=== PATIENT | female | born 2000 | race Caucasian/White ===

== ENCOUNTER 2024-10-03 11:16 | Outpatient (AMB) | payer OTHER, SELFPAY ==
--- NOTE | 2024-10-03 11:31 | MHC.PC.OV ---
Vital Signs 10/03/24 11:34 Height 5 ft 2.28 in Weight 172 lb BMI 31.2 BP 96/72 Blood Pressure Location Rt brachial Position Sitting Respiration 12 Pulse 84 Pulse Source Pulse Oximeter Temp 98.9 F Temp Source Oral Pulse Oximetry (%) 98 Oxygen Delivery Method Room Air Intake Visit Reasons: depression med refill Intake Note: New patient visit Allergies No Known Allergies Allergy (Verified 10/03/24 11:32) Medication List - Last Reconciled 10/03/24 by Mary Parnell PA-C Tobacco use date assessed: 10/03/24 Dental Screening Dental Screen Date: 10/03/24 Did you have a dental visit in the last 12 months?: Yes Did you have a dental problem in the last 6 months where you did not have access to dental care?: No Was dental information given to patient?: Patient has dentist HPI depression med refill HPI Details Patient is a 23-year-old female who presents today to [facility]. She is transferring from [facility]. She has a significant past medical history of anxiety and depression. Psych: On Lexapro 10 mg. Has been on this since 2020. Has not tried previous meds. She states that it is somewhat helpful but not fully. She is working with a therapist and she finds this helpful. She lost her mom in September 17 colorectal cancer. She states in January she presented to the hospital and was diagnosed with this and had spent months in the ICU. She says that this has been very challenging for her and over the last few months she made some poor choices with over spending through her savings account. She states that her mother used to manage this and she thinks that she was just grieving. She has been careful with this for awhile. She is taking steps to help control the grief. She has a supportive family and friends. She says that she was also drinking more alcohol than she probably should have been at that point and since then has not been drinking. 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 She states that she is very active during the day that when she gets home she just lacks motivation and she thinks that is how her depression presents. She has a hard time feeling excited about doing things. She also has since her mother passed developed a lot of health anxiety. She says that she has generalized anxiety but also the health anxiety. No SI/HI. Denies sleep issues HEENT: She states that for the last couple years she has noticed this swelling on the left side of her neck. She says it feels like it is her lymph nodes. On exam I do not appreciate any difference between the sides but she states that there is a fullness to the left side of her neck/jaw area. Up-to-date with dental exams. Denies any recent infections. Denies any difficulty swallowing. No weight loss. She does vape GI: She states for the last 2-3 years she started with frequent BMs. She states that it has gradually worsened. It is throughout the day and about an hour after eating. No blood in the stool. No mucous in the stool. No weight loss with this. She gets mild abdominal discomfort that resolves with bowel movements. She also we will feel bloated and that will not improve with bowel movements. She states on the right side of her lower abdomen/pelvic area she feels a fullness. She is up-to-date with gynecology. She says that if she lays on her abdomen it will make her have to use the bathroom. This has been going on for the last year. She states that the almost almost every bowel movement is loose like diarrhea. A couple times a week she will have a normal consistent stool. She is very worried about colon cancer. She states when her mother was at the hospital in January the oncologist explained that colon cancer is happening too young people and she states since then she has been worried that she has colon cancer. Denies any abnormal menses, abnormal vaginal discharge or bleeding. She states that she had recent STD screening which was negative and does not wish to have this again. No dysuria, malodorous urine or flank pain. Leather Skinner: [facility] follows and UTD, normal menses monthly 4-5 days. Family history: paternal grandfather had DM, father HLD, mother had colorectal ca dx at 52, PFSH Surgical History (Updated 10/03/24 @ 11:38 by Chely Gonzalez CMA) H/O wisdom tooth extraction Family History (Updated 10/03/24 @ 11:41 by Chely Gonzalez CMA) Mother Colon cancer Father High cholesterol Maternal Grandmother Liver cancer Paternal Grandfather Diabetes Other FH: mental illness Social History Housing: House Patient Tobacco Use Status: Never used Tobacco e-Cigarette/Vaping Use: Currently Using service: No Current occupational status: employed Current occupation: Daycare, [employer] Current occupational exposures/hazards: No Cognitive needs: No Hearing needs: No Vision needs: No Questionnaire PHQ-9 Over the last 2 weeks, how often have you been bothered by any of the following problems? 1. Little interest or pleasure in doing things: several days 2. Feeling down, depressed, or hopeless: several days 3. Trouble falling or staying asleep, or sleeping too much: several days 4. Feeling tired or having little energy: several days 5. Poor appetite or overeating: not at all 6. Feeling bad about yourself - or that you are a failure or have let yourself or your family down: not at all 7. Trouble concentrating on things, such as reading the newspaper or watching television: several days 8. Moving or speaking so slowly that other people could have noticed. Or the opposite - being so fidgety or restless that you have been moving around a lot more than usual: not at all 9. Thoughts that you would be better off or of hurting yourself in some way: not at all Total score: 5 Depression Screening Interpretation: Positive Depression Screening Follow-up: Existing condition, In treatment, Change in Medication, Community Mental Health Worker F/U and Follow-up Visit Requested Depression Screening Done: Yes 57374 - PHQ-9 Billing: Yes Source: Developed by Drs. Robbie Puentes, Ann Kwok, Dane Vo and colleagues, with an educational chidi from [employer]. Thrive Questionnaire Date Thrive assessed: 10/03/24 I am a: Patient What is your living situation today?: I have a steady place to live Within the past 12 months, did the food you bought not last and you didn't have the money to get more?: Never true Within the past 12 months, did you worry whether your food would run out before you got money to buy more?: Never true Do you have trouble paying for medicines?: No Do you have trouble getting transportation to medical appointments?: No Do you have trouble paying your heating and electricity bill?: No Do you have trouble taking care of your child, family member or friend?: No Do you have trouble with day-to-day activities such as bathing, preparing meals, shopping, managing finances, etc.?: No Are you currently unemployed and looking for a job?: No Are you interested in more education?: No Please select the resources that you would like help with: None Currently or been in a relationship where the following occur: No concerns reported THRIVE Score: 0 AUDIT C Alcohol Use Questionnaire (AUDIT-C) 1. How often do you have a drink containing alcohol?: Monthly or less 2. How many drinks containing alcohol do you have on a typical day when you are drinking?: 3 or 4 3. How often do you have six or more drinks on one occasion?: Less than monthly Total Score: 3 Score Reviewed/Action Taken: Yes PRASHANTH-7 AMB Questionnaire PRASHANTH-7 Date PRASHANTH - 7 assessed: 10/03/24 Feeling nervous, anxious, or on edge: 1 = Several days Not being able to stop or control worryin = Not at all Worrying too much about different things: 1 = Several days Trouble relaxin = Several days Being so restless that it is hard to sit still: 0 = Not at all Becoming easily annoyed or irritable: 1 = Several days Feeling afraid as if something awful might happen: 1 = Several days Total PRASHANTH-7 score (0-4 normal; 5-9 mild; 10-14 moderate; 15-21 severe): 5 Source: Developed by Drs. Robbie Puentes, Ann Kwok, Dane Vo and colleagues, with an educational chidi from [employer]. PRASHANTH-7 Assessment Billing PRASHANTH-7 Assessment Tool: PRASHANTH-7 Assessment [id number] Physical exam (Primary Care) Vital Signs: Last Vital Signs Temp 98.9 F 10/03/24 11:34 Pulse 84 10/03/24 11:34 Resp 12 10/03/24 11:34 BP 96/72 10/03/24 11:34 Pulse Ox 98 10/03/24 11:34 Oxygen Delivery Method Room Air 10/03/24 11:34 BMI result Body Mass Index 31.2 Depression Screening Interpretation: Positive Depression Screening Follow-up: Existing condition, In treatment, Change in Medication, Community Mental Health Worker F/U and Follow-up Visit Requested Currently or been in a relationship where the following occur: No concerns reported Const Orientation/consciousness: patient oriented x3 HENMT Ears: hearing grossly normal bilaterally Neck Thyroid: Thyroid normal Lymphatic: no lymphadenopathy noted Resp Auscultation: clear to auscultation bilaterally Cardio Rate: regular rate Rhythm: regular rhythm Heart sounds: S1 normal heart sound present and S2 normal heart sound present GI Inspection: Yes normal to inspection Palpation (GI): Soft to palpation and Other GI palpation findings present (nontender, no cva tenderness) Auscultation: normoactive bowel sounds Rectal Exam - Female: deferred Skin General skin exam: no rashes or lesions noted Neuro General: patient oriented x3, gait normal and no focal motor deficits Coding Level of Care Code Complex EM visit Add On G2211 Diagnoses Frequent loose stools R19.7 Family hx of colorectal cancer Z80.0 Generalized anxiety disorder F41.1 Major depression, recurrent, chronic F33.9 Abdominal bloating R14.0 Left cervical lymphadenopathy R59.0 Additional Codes PHQ-9 - 20124 - PHQ-9 Billing: Yes ([id number]) PRASHANTH-7 Assessment Billing - PRASHANTH-7 Assessment Tool: PRASHANTH-7 Assessment [id number] ([id number]) Assessment & Plan Assessment & Plan (1) Frequent loose stools: Code(s): R19.7 - Diarrhea, unspecified Category: Medical Plan: Labs ordered. Imaging ordered. Advised to try an elimination diet. I have referred her to GI. (2) Family hx of colorectal cancer: Code(s): Z80.0 - Family history of malignant neoplasm of digestive organs Category: Medical Plan: As listed above. (3) Generalized anxiety disorder: Code(s): F41.1 - Generalized anxiety disorder Category: Medical Plan: Increase Lexapro to 20 mg Spent extensive time discussing the health anxiety and healthy lifestyle changes that she could make to help reduce her risks such as limiting sugar, processed foods, quit vaping, quit drinking, exercise and good quality sleep (4) Major depression, recurrent, chronic: Code(s): F33.9 - Major depressive disorder, recurrent, unspecified Category: Medical Plan: As above. We will follow up if anything worsens or changes sooner otherwise follow up in 4-6 weeks. Has follow up arranged with her therapist. (5) Abdominal bloating: Code(s): R14.0 - Abdominal distension (gaseous) Category: Medical Plan: Pelvic and abdominal ultrasound ordered (6) Left cervical lymphadenopathy: Code(s): R59.0 - Localized enlarged lymph nodes Category: Medical Plan: Unable to appreciate this today. Ultrasound ordered. Plan 70 minutes spent today in fphb-kg-beco time reviewing a list of her concerns, discussing her anxiety, grief and formulating a plan and making medication changes. Orders: Orders Transglutaminase Ab IgG Today F33.9 - Major depressive disorder, recurrent, unspecified, F41.1 - Generalized anxiety disorder, R19.7 - Diarrhea, unspecified, Z80.0 - Family history of malignant neoplasm of digestive organs Vitamin B12 and Folate Today F33.9 - Major depressive disorder, recurrent, unspecified, F41.1 - Generalized anxiety disorder, R19.7 - Diarrhea, unspecified, Z80.0 - Family history of malignant neoplasm of digestive organs Ferritin Today F33.9 - Major depressive disorder, recurrent, unspecified, F41.1 - Generalized anxiety disorder, R19.7 - Diarrhea, unspecified, Z80.0 - Family history of malignant neoplasm of digestive organs IRON PROFILE Today F33.9 - Major depressive disorder, recurrent, unspecified, F41.1 - Generalized anxiety disorder, R19.7 - Diarrhea, unspecified, Z80.0 - Family history of malignant neoplasm of digestive organs US soft tiss head and/or neck Today R59.0 - Localized enlarged lymph nodes Complete Blood Count Auto Diff Today F33.9 - Major depressive disorder, recurrent, unspecified, F41.1 - Generalized anxiety disorder, R19.7 - Diarrhea, unspecified, Z80.0 - Family history of malignant neoplasm of digestive organs Comprehensive Met. Panel Today F33.9 - Major depressive disorder, recurrent, unspecified, F41.1 - Generalized anxiety disorder, R19.7 - Diarrhea, unspecified, Z80.0 - Family history of malignant neoplasm of digestive organs Lipid Panel Today F33.9 - Major depressive disorder, recurrent, unspecified, F41.1 - Generalized anxiety disorder, R19.7 - Diarrhea, unspecified, Z80.0 - Family history of malignant neoplasm of digestive organs Hemoglobin A1c Today F33.9 - Major depressive disorder, recurrent, unspecified, F41.1 - Generalized anxiety disorder, R19.7 - Diarrhea, unspecified, R73.01 - Impaired fasting glucose, Z80.0 - Family history of malignant neoplasm of digestive organs TSH reflex Free T4 Today F33.9 - Major depressive disorder, recurrent, unspecified, F41.1 - Generalized anxiety disorder, R19.7 - Diarrhea, unspecified, Z80.0 - Family history of malignant neoplasm of digestive organs Erythrocyte Sedimentation Rate Today F33.9 - Major depressive disorder, recurrent, unspecified, F41.1 - Generalized anxiety disorder, R19.7 - Diarrhea, unspecified, Z80.0 - Family history of malignant neoplasm of digestive organs C Reactive Protein Today F33.9 - Major depressive disorder, recurrent, unspecified, F41.1 - Generalized anxiety disorder, R19.7 - Diarrhea, unspecified, Z80.0 - Family history of malignant neoplasm of digestive organs Endomysial IgA rflx Titer Today F33.9 - Major depressive disorder, recurrent, unspecified, F41.1 - Generalized anxiety disorder, R19.7 - Diarrhea, unspecified, Z80.0 - Family history of malignant neoplasm of digestive organs Immunoglobulin A Today F33.9 - Major depressive disorder, recurrent, unspecified, F41.1 - Generalized anxiety disorder, R19.7 - Diarrhea, unspecified, Z80.0 - Family history of malignant neoplasm of digestive organs Magnesium Today F33.9 - Major depressive disorder, recurrent, unspecified, F41.1 - Generalized anxiety disorder, R19.7 - Diarrhea, unspecified, Z80.0 - Family history of malignant neoplasm of digestive organs US abdomen complete Today R10.2 - Pelvic and perineal pain, R14.0 - Abdominal distension (gaseous) US pelvic and transvaginal Today R10.2 - Pelvic and perineal pain, R14.0 - Abdominal distension (gaseous) UA CC w/rflx Micro + Cult Today R14.0 - Abdominal distension (gaseous), R19.7 - Diarrhea, unspecified, Z13.220 - Encounter for screening for lipoid disorders Referrals Gastroenterology Referral R19.7 - Diarrhea, unspecified, Z80.0 - Family history of malignant neoplasm of digestive organs Medications: New escitalopram oxalate (Lexapro) 20 mg PO DAILY 90 tabs 3RF
[2024-10-03 11:34] VITALS: BP 96/72; PULSE 84; RESP 12; TEMP 37.2; O2SAT 98; BMI 31.2
--- OUTSIDE RECORDS SUMMARY | 2024-10-03 13:07 | XMS_ITS | Data Portability ---
Author Organization [facility] [address] Address [address] [place] [address] Assessment No assessment recorded. Plan of Treatment Reminders Order Date Submit Date Provider Last Modified By Organization Details Last Modified Time Details Appointments None record ed. Lab None record ed. Referral None record ed. Procedures None record ed. Surgeries None record ed. Imaging None record ed. Medication Orders None record ed. Patient TargetsNo targets recorded. Patient InstructionsNo instructions recorded. Reason for Referral None Reported. Medical Equipment None Reported. Medications Name Sig Start Date Stop Date Status Note LastModified by Organization Details LastModified Time amoxicillin 500 mg capsule TAKE 1 CAPSULE BY MOUTH THREE TIMES A DAY active Not Available Not Available Not Available cetirizine 10 mg tablet TAKE 1 TABLET BY MOUTH EVERY DAY active Not Available Not Available No t Available fluconazole 150 mg tablet TAKE 1 TABLET BY MOUTH ONCE FOR YEAST INFECTION active Not Available Not Available No t Available metronidazol e 0.75 % (37.5 mg/5 gram) vaginal gel INSERT 1 APPLICATORF UL VAGINALLY ONCE DAILY AT BEDTIME FOR 5 DAYS active Not Available Not Available N ot Available ibuprofen 600 mg tablet TAKE 1 TABLET BY MOUTH EVERY 4-6 HOURS NEEDED active Not Available Not Available No t Available methylpredni solone 4 mg tablets in a dose pack TAKE 6 TABLETS ON DAY 1 DIRECTED ON PACKAGE AND DECREASE BY 1 TAB EACH DAY FOR A TOTAL OF 6 DAYS active Not Available Not Available No t Available albuterol sulfate HFA 90 mcg/actuatio n aerosol inhaler INHALE 2 PUFFS EVERY 4 HOURS NEEDED FOR WHEEZING active Not Available Not Available No t Available amoxicillin 875 mg-potassium clavulanate 125 mg tablet TAKE 1 TABLET BY MOUTH TWICE A DAY active Not Available Not Available No t Available escitalopram 10 mg tablet TAKE 1 TABLET BY MOUTH EVERY DAY active Not Available Not Available No t Available chlorhexidin e gluconate 0.12 % mouthwash SWISH AND SPIT 15 ML BY MOUTH, MORNING AND NIGHT FOR 2 WEEKS active Not Available Not Available No t Available Vitals None Recorded Social History None recorded. Functional Status None recorded. Mental Status None recorded. Family History Nothing Reported. Medical History No medical history recorded. Gynecological HistoryNo gynecological history recorded. Obstetrics History GPAL:G 0 P 0 0 0 0 Past Encounters Encounter ID Performer Location Encounter Start Date Encounter Closed Date Diagnosis/Indication Diagnosis SNOMED-CT Code Diagnosis ICD10 Code Diagnosis Note [id number] [facility] [address] [facility] [address] [place] [address] 11/02/2020 11:20:42 11/02/2020 12:42:35 [id number] _[facility] [address] [address] 12/21/2020 08:11:44 12/21/2020 09:45:25 Health Concerns Section Related Observation LastModified by Organization Detai ls LastModified Time None Recorded Concern Status LastModified by Organization Details LastModified Time None Recorded Advance Directives Directive None Recorded Payers Insurance Date Sequence Insurance Name Policy Number Policy Clancy Covered Member ID Clancy Member ID Guarantor Name 04/21/2022 1 [facility] [id number] Natividad Quigley [id number] Natividad Quigley OBGyn Episode No OBEpisode recorded.
== END 2024-10-03 12:20 | disposition home or self-care (01) ==
LOC: HO.HMCFM 11:17
PROVIDERS: PCP Physician Assistant; Visit Provider Physician Assistant
DX: R19.7 Diarrhea, unspecified (principal); Z80.0 Family history of malignant neoplasm of digestive organs; F41.1 Generalized anxiety disorder; F33.9 Major depressive disorder, recurrent, unspecified; R14.0 Abdominal distension (gaseous); R59.0 Localized enlarged lymph nodes

== ENCOUNTER → 2024-10-03 11:16 | Outpatient (BNVA) | payer OTHER, SELFPAY | PROVIDERS: PCP Physician Assistant; Visit Provider Physician Assistant | DX: F41.1 Generalized anxiety disorder (principal); R19.7 Diarrhea, unspecified; F33.9 Major depressive disorder, recurrent, unspecified; R14.0 Abdominal distension (gaseous); R59.0 Localized enlarged lymph nodes; Z80.0 Family history of malignant neoplasm of digestive organs; Z79.899 Other long term (current) drug therapy | CPT/HCPCS: 96127 ==

== ENCOUNTER 2024-10-29 10:55 | Outpatient (REF) | payer OTHER, SELFPAY ==
--- OUTSIDE RECORDS SUMMARY | 2024-10-29 11:54 | XMS_ITS | Data Portability ---
Author Organization [facility], [address] Address [address] [place] [address] Assessment No assessment recorded. Plan of Treatment [...] SNOMED-CT Code Diagnosis ICD10 Code Diagnosis Note [id number] [facility] [place] [address] 11/02/2020 11:20:42 11/02/2020 12:42:35 [id number] _[facility] [address] [address] 12/21/2020 08:11:44 12/21/2020 09:45:25 Health Concerns Section Related Observation LastModified by Organization Detai ls LastModified Time None Recorded Concern Status LastModified by Organization Details LastModified Time None Recorded Advance Directives Directive None Recorded Payers Insurance Date Sequence Insurance Name Policy Number Policy Clancy Covered Member ID Clancy Member ID Guarantor Name 04/21/2022 1 [facility] [id number] Natividad Quigley [id number] Natividad Quigley OBGyn Episode No OBEpisode recorded.
--- OUTSIDE RECORDS SUMMARY | 2024-10-29 11:54 | XMS_ITS | Clinical Summary ---
Author Organization [facility] Address [address] [place] [phone] Phone Care Team Providers Care Final Inspector Movement Assembly Name Role Phone Unavailable Primary Care Provider Unavailabl e Allergies Active Allergy Reactions Criticality Noted Date Comments Environmental 12/12/2017 Cats dogs mold grass pollen tree pollen Medications QVAR REDIHALER 80 MCG/ACT aerosol 8 Active ALBUTEROL HFA 108 (90 Base) MCG/ACT inhalerIndication s:Mild intermittent asthma without complication INHALE 2 PUFFS BY MOUTH EVERY 4 HOURS NEEDED FOR WHEEZING AND COUGHING 1 Units 0 Active cetirizine (ZyrTEC Allergy) 10 MG tabletIndications :Seasonal allergies Take 1 tablet (10 mg total) by mouth nightly as needed for allergies. 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 Will check lipids as was recommended in Cardiology note from 2010 BMI (body mass index), pedia tric, 85% to less than 95% for age 0307/02/2019 Assessment & Plan (07/02/2019 11:08 AM EDT): Showed and discussed growth curves. Encouraged regular exercise. Will check fasting labs, gave list of BRL hours. Nevus 07/02/2019 Assessment & Plan (07/02/2019 11:11 AM EDT): Discussed changes to call for. Sun protection discussed. Dysmenorrhea 11/17/2018 Assessment & Plan (07/02/2019 11:06 AM EDT): Off OCP's now, declined other form of contraception at this point. Discussed safe sex if SA. To f/u with Tree G[facility]ler as needed. She has not discussed this with parents, encouraged her to do so if able. Assessment & Plan (11/17/2018 3:18 PM EDT): Gave rx for OCP, did not add to med record by request Refused influenza vaccine 06/08/2018 Assessment & Plan (07/02/2019 10:44 AM EDT): Recommended flu shot which was declined. Seasonal allergies 06/08/2018 Overview (06/08/2018): Spring and cetitizine and sees irrigator head with animal and dust allergies as well. Assessment & Plan (07/02/2019 10:41 AM EDT): Takes Cetirizine as needed. 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 Has it at home. Assessment & Plan (06/08/2018 3:40 PM EST): QVAR in the spring for pollen allergies and also dust and animal dander for allergies. Albuterol as needed. Immunizations Immunization Administration Dates Next Due DTaP 11/16/2005, 2,05/24/2001, 001,01/25/2001 H1N1 05/21/2009,02/03/2009 HPV Vaccine 9 Valent 11/27/2015,05/26/2015 Hep A, ped/adol 07/02/2019,06/19/2018 Hep B, ped/adol 08/16/2001,2000,2000 Hib (PRP-T) 03/12/2002, 2,03/27/2001, 001 IPV 11/16/2005, 2,03/27/2001, 001 MMR 11/16/2005,11/21/2001 Meningococcal Conj (Menactra) MCV4P 06/02/2017,1 04/24/2011 Pneumococcal Conjugate 05/24/2001,03/27/2001,01/2001 Tdap 02/23/2012 Varicella 11/25/2006,11/21/2001 Family History Medical History Relation Name Comments Hyperlipidemia Father Colon cancer Maternal Grandfather Heart disease (Premature) Maternal Grandfather No Known Problems Maternal Grandmother No Known Problems Mother Diabetes Paternal Grandfather No Known Problems Paternal Grandmother No Known Problems Sister Relation Name Status Comments Father Alive hyperlipidemia age: 48 diagnosed with Hypercholesteremia Maternal Grandfather [place] trip le bypass, brain aneurysm diagnosed with HEART DISEASE NOS Maternal Grandmother Alive healthy Mother Alive healthy age: 43 Paternal Grandfather Alive DM diag nosed with DMII WO CMP NT [facility] UNCNTR Paternal Grandmother Alive healthy Sister Alive Social History Tobacco Use Types Packs/Day Years Used Date Smoking Tobacco: Never Smokeless Tobacco: Never Alcohol Use Standard Drinks/Week Comments Never 0 (1 standard drink = 0.6 oz pur e alcohol) Hunger/Food Answer Date Recorded No 06/08/2018 Stable Housing Answer Date Recorded No 04/21/2019 Transportation Concerns Answer Date Rec orded No 06/08/2018 Hazards in Home Answer Date Recorded No 06/08/2018 Financing Utilities Answer Date Recorde d No 06/08/2018 Safety at Home Answer Date Recorded No 06/08/2018 Outside Support Answer Date Recorded No 06/08/2018 Understanding Health Concerns Answer Da te Recorded No 06/08/2018 Financing Health Concerns Answer Date R ecorded No 06/08/2018 Missing School or Work Answer Date Can rded No 06/08/2018 Comments No Sex and Gender Information Value Date Recorded Sex Assigned at Not on file Legal Sex Female 6:22 PM EDT Gender Identity Not on file Sexual Orientation Not on file Last Filed Vital Signs Vital Sign Reading Time Taken Comments Blood Pressure 112/62 11/17/2018 2:54 PM EDT Pulse 102 07/04/2017 12:00 AM EDT Temperature 36.3 C (97.4 F) 11/17/2018 2:54 PM EDT Respiratory Rate - - Oxygen Saturation 100% 07/04/2017 12:00 AM EDT Inhaled Oxygen Concentration - - Weight 75.3 kg (166 lb) 07/02/2019 10:02 AM EDT Height 158.8 cm (5' 2.5 ) 07/02/2019 10:02 AM ED T Body Mass Index 29.88 07/02/2019 10:02 AM EDT Plan of Treatment Health Maintenance Due Date Last Done Comments Men B Vaccine (1 of 2 - Standard) 2016 DTaP,Tdap,and Td Vaccines (7 - Td or Tdap) 02/22/2022 02/23/2012, 11/16/2005, 03/12/2002, Additional history exists COVID-19 Vaccine ( season) 2023 Influenza Vaccines (#1) 2024 Pneumococcal Vaccine Aged Out 05/24/2001, 03/27/2001, 01/25/2001 No longer eligible based on patient's age to complete this topic Hepatitis B Vaccines Completed 08/16/2001, 2000, 2000 HIB Vaccines Completed 03/12/2002, 09/2001, 03/27/2001, Additional history exists IPV Vaccines Completed 11/16/2005, 04/2001, 03/27/2001, Additional history exists MMR Vaccines Completed 11/16/2005, 11/21/2001 Varicella Vaccines Completed 11/25/2006, 11/21/2001 HPV Vaccines Completed 11/27/2015, 05/26/2015 Meningococcal Vaccine Completed 06/02/2017, 012 Hepatitis A Vaccines Completed 07/02/2019, 06/20/19 19 Procedures * Due to [place] state law, this organization might not be sharing sensitive test results. Procedure Name Priority Date/Time Associated Diagnosis Comments CHLAMYDIA AND GONORRHEA, AMPLIFIED Routine 07/02/2019 10:27 AM EDT Encounter for well adult exam with abnormal findings from Last 3 Months or Most Recently Relevant to Health Maintenance Results * Due to [place] state law, this organization might not be sharing sensitive test results. * Chlamydia and Gonorrhoea, Amplified (07/02/2019 10:27 AM EDT) Chlamydia Trachomatis, DNA Probe NEGATIVE (NEG) [facility] Comment: No Chlamydia Trachomatis RNA detected in this patient's sample (REFERENCE RANGE/NORMAL VALUE: NOT DETECTED) Note: This test uses supervising deputy- mediated amplification method to detect rRNA from C. Trachomatis URINE GC AMP PROBE NEGATIVE (NEG) [facility] Comment: No Neisseria Gonorrhoeae RNA detected in this patient's sample (REFERENCE RANGE/NORMAL VALUE: NOT DETECTED) NOTE: This test uses supervising deputy-mediated amplification method to detect rRNA from N.Gonorrhoeae. A negative result does not preclude infection. In the case of a negative urine result, testing of an endocervical(female) or urethral (male) specimen is recommended if there is high clinical suspicion of infection. Due to very high sensitivity of Nucleic Acid Amplification Test, false positive results may occur. Therefore, specimen handling is extremely important. In patients in whom the disease is unlikely, additional sample for testing should be considered after an initial positive result. The performance characteristics of this test have not been evaluated in children. The Aptima Combo2 assay is not intended for the evaluation of suspected sexual abuse or for other medico-legal indications. The ordering provider should assess if the patient had consensual sex without risk of sexual abuse. Consult the [facility] if needed. Contact phone number . Therapeutic failure or success cannot be determined with the Aptima Combo2 assay since nucleic acid may persist following appropriate antimicrobial therapy. The Centers for Disease Control and Prevention (CDC) recommends confirmatory retesting using culture or a different nucleic acid amplification test when positive results occur, if indicated. Testing performed or reported by [facility], a Service of [facility], [address], [place] [address] Valentín Carter MD, Incident Response Consultant Urine 07/02/2019 10:2 7 AM EDT 07/02/2019 3:42 PM EDT Marlyn Drake MD LAB MICROBIOLOGY - GENERAL OR DERABLES Final Result [facility] from Last 3 Months or Most Recently Relevant to Health Maintenance [place] [address] [address] [place] [address] [address]
[2024-10-29 15:12] LABS: Appearance Urine Clear; Glucose Urine UA Negative (Negative); PH 7.0 (5.0-9.0); Specific Gravity - Urine <= 1.005 (1.005-1.025)
[2024-10-29 15:28] LABS: MANUAL DIFF FLAG NO
[2024-10-29 15:44] LABS: Hematocrit 41.0 % (37.0-47.0); Hemoglobin 13.5 g/dl (12.0-16.0); Imm Gran Abs Auto 0.02 X10*3/uL (0.00-0.03); Imm Gran Pct Auto 0.4 % (0.0-0.4); Lymphocytes Absolute Auto 2.3 X10*3/uL (1.2-4.9); Mean Corpuscular HGB Conc 32.9 g/dl (31.0-35.0); Mean Corpuscular Hemoglobin 29.3 pg (27.0-33.0); Mean Corpuscular Volume 88.9 fL (80.0-98.0); NRBC Abs Auto 0.000 X10*3/uL (0.0-0.012); NRBC Pct Auto 0.0 /100WBC (0.0-0.2); Platelet Count 285 X10*3/uL (160-400); Red Blood Count 4.61 X10*6/uL (4.20-5.50); White Blood Count 5.6 X10*3/uL (4.8-10.8)
[2024-10-29 15:45] LABS: Hemoglobin A1C 121.6894 umol/L; Total Hemoglobin (HGBA1C) 3544.5223 umol/L
[2024-10-29 16:15] LABS: Alanine Aminotransferase 19 U/L (0-31); Albumin Level 4.7 g/dL (3.5-5.0); Alkaline Phosphatase 49 U/L (39-117); Anion Gap 11 (12-20); Aspartate Amino Transferase 26 U/L (5-31); Blood Urea Nitrogen 9 mg/dL (9-16); Calcium 9.4 mg/dL (8.4-10.2); Carbon Dioxide 26 mmol/L (22-29); Chloride 105 mmol/L (96-108); Cholesterol 173 mg/dL (<200); Estimated Glomerular Filt Rate > 60; HDL Cholesterol 43 mg/dL (>40); Iron 80 mcg/dL (30-160); Magnesium 2.0 mg/dL (1.6-2.6); Percent Iron Saturation 27 % (15-50); Potassium 3.7 mmol/L (3.3-5.1); Sodium 138 mmol/L (135-145); Total Iron Binding Capacity 295 mcg/dL (228-428); Total Protein 7.5 g/dL (6.5-8.0); Triglycerides 74 mg/dL (<150); Unsaturated Iron Binding 215 ug/dL
[2024-10-29 16:19] LABS: Ferritin 35 ng/mL (10-122)
[2024-10-29 16:25] LABS: Folate 7.3 ng/mL (> or = 4.0); Vitamin B12 549 pg/mL (200-900)
[2024-10-30 15:04] LABS: Immunoglobulin A 177 mg/dL (47-310)
[2024-10-30 22:18] LABS: Transglutaminase Ab IgG <1.0 U/mL
== END 2024-10-29 10:56 | disposition home or self-care (01) ==
LOC: HO.WFDLDS 10:55
PROVIDERS: Visit Provider Physician Assistant
DX: Z13.220 Encounter for screening for lipoid disorders (principal); F33.9 Major depressive disorder, recurrent, unspecified; F41.1 Generalized anxiety disorder; R73.01 Impaired fasting glucose; R19.7 Diarrhea, unspecified; R14.0 Abdominal distension (gaseous); Z80.0 Family history of malignant neoplasm of digestive organs
CPT/HCPCS: 36415; 80053; 80061; 81003; 82607; 82728; 82746; 82784; 83036; 83540; 83735; 84443; 85025; 85652; 86140; 86231; 86364

== ENCOUNTER 2024-11-21 12:14 | Outpatient (AMB) | payer OTHER, SELFPAY ==
--- NOTE | 2024-11-21 11:52 | MHC.PC.OV ---
Intake Visit Reasons: depression/labs/imaging Intake Note: Depression follow up. Lab results and imaging results. Allergies No Known Allergies Allergy (Verified 11/21/24 12:09) Medication List - Last Reconciled 11/21/24 by Mary Parnell PA-C escitalopram oxalate (Lexapro) 20 mg PO DAILY Tobacco use date assessed: 11/21/24 Dental Screening Dental Screen Date: 10/03/24 HPI depression/labs/imaging HPI Details Patient is a 24-year-old female who presents today for a follow up. Psych:. Has recently lost her mother and has been struggling with grief, anxiety and depression. I recently increased the Lexapro. She states that it is not as effective as she would like. She states that her She would like to see a new therapist and an actual psychiatrist. She currently goes to [facility]. She states her compulsive behaviors are a little better with lexapro but not the depression sx. She states she still just feel sad sometimes and thinks that she should maybe try additional medication or full change in medication but she is worried about compulsive intrusive thoughts becoming worse. Her original PCP at put her on the Lexapro to help with some of her ?OCD like ?tendencies. She states for instance if she walks by a row of candles at the grocery store she will have to stop and open each 1 in smell it and then put it back in the exact way that it went before. When her depression is at its worse she does sometimes feel thoughts of self loathing but does not have a plan or would act on anything. She denies any true suicidal ideation or HI. She does have significant health anxiety and states that this past year has been hard for her. GI: still gets bloating. booked for u/s next month. She was referred to GI. [facility] Surgical History H/O wisdom tooth extraction Family History Mother Colon cancer Father High cholesterol Maternal Grandmother Liver cancer Paternal Grandfather Diabetes Other FH: mental illness Social History (Updated 11/21/24 @ 12:13 by Chely Gonzalez CMA) Housing: House Alcohol intake: current Patient Tobacco Use Status: Never used Tobacco e-Cigarette/Vaping Use: Currently Using Use of substances other than those prescribed or required for medical reasons: No service: No Current occupational status: employed Current occupation: Daycare, [employer] Current occupational exposures/hazards: No Cognitive needs: No Hearing needs: No Vision needs: No Questionnaire PHQ-9 Over the last 2 weeks, how often have you been bothered by any of the following problems? 1. Little interest or pleasure in doing things: several days 2. Feeling down, depressed, or hopeless: several days 3. Trouble falling or staying asleep, or sleeping too much: nearly every day 4. Feeling tired or having little energy: nearly every day 5. Poor appetite or overeating: not at all 6. Feeling bad about yourself - or that you are a failure or have let yourself or your family down: several days 7. Trouble concentrating on things, such as reading the newspaper or watching television: several days 8. Moving or speaking so slowly that other people could have noticed. Or the opposite - being so fidgety or restless that you have been moving around a lot more than usual: several days 9. Thoughts that you would be better off or of hurting yourself in some way: several days Total score: 12 Depression Screening Interpretation: Positive Depression Screening Done: Yes 95473 - PHQ-9 Billing: Yes Source: Developed by Drs. Robbie Puentes, Dane Mercer and colleagues, with an educational chidi from [employer]. Thrive Questionnaire Date Thrive assessed: 10/03/24 PRASHANTH-7 AMB Questionnaire PRASHANTH-7 Date PRASHANTH - 7 assessed: 11/21/24 Feeling nervous, anxious, or on edge: 1 = Several days Not being able to stop or control worryin = Several days Worrying too much about different things: 1 = Several days Trouble relaxin = Several days Being so restless that it is hard to sit still: 1 = Several days Becoming easily annoyed or irritable: 1 = Several days Feeling afraid as if something awful might happen: 1 = Several days Total PRASHANTH-7 score (0-4 normal; 5-9 mild; 10-14 moderate; 15-21 severe): 7 Source: Developed by Drs. Robbie Puentes, Dane Mercer and colleagues, with an educational chidi from [employer]. PRASHANTH-7 Assessment Billing PRASHANTH-7 Assessment Tool: PRASHANTH-7 Assessment 93349 Physical exam (Primary Care) Tobacco/Smoking Status: Tobacco use Status Tobacco use date assessed 11/21/24 11/21/24 12:13 Patient Tobacco Use Status Never used Tobacco 11/21/24 12:13 e-Cigarette/Vaping Use Currently Using 11/21/24 12:13 PHQ-9: PHQ-9 Score PHQ-9: Total score 12 11/21/24 12:49 Depression Screening Interpretation: Positive Thrive Assessment: Date of Thrive Assessment Date Thrive assessed 10/03/24 11/21/24 11:52 Telehealth Telehealth Telehealth Platform: Telephone Location of provider rendering services: practice address Location of patient: address on file Patient Identification confirmed using: Name, : Yes Telehealth method: voice only Patient verbally consented to treatment: Yes Patient verbally consented to billing insurance company: Yes Patient informed of any privacy concerns related to visit: Yes Minutes spent on Phone/Video with Pt.: 15 Results Reviewed Results Reviewed: Laboratory Tests 10/29/24 11:00 WBC 5.6 RBC 4.61 Hgb 13.5 Hct 41.0 Plt Count 285 Sodium 138 Potassium 3.7 Chloride 105 Carbon Dioxide 26 Anion Gap 11 L BUN 9 Creatinine 0.65 Estimated GFR > 60 Hemoglobin A1c % 5.3 Calcium 9.4 Magnesium 2.0 Iron 80 AST 26 ALT 19 Triglycerides 74 Cholesterol 173 LDL Cholesterol, Calc 116 H HDL Cholesterol 43 Vitamin B12 549 TSH 2.03 Coding Level of Care Code Tele Est Pt Level 2 (86800) Diagnoses Generalized anxiety disorder F41.1 Major depression, recurrent, chronic F33.9 Compulsive behavior R46.89 Additional Codes PRASHANTH-7 Assessment Billing - PRASHANTH-7 Assessment Tool: PRASHANTH-7 Assessment 21860 ([id number]) PHQ-9 - 01436 - PHQ-9 Billing: Yes ([id number]) Assessment & Plan Assessment & Plan (1) Generalized anxiety disorder: Code(s): F41.1 - Generalized anxiety disorder Category: Medical Plan: Referral to Psychiatry. Advised to seek emergent medical treatment should anything worsen or change. We will continue current regimen. Reviewed labs today. We will follow up with her pending ultrasound (2) Major depression, recurrent, chronic: Code(s): F33.9 - Major depressive disorder, recurrent, unspecified Category: Medical Plan: As above (3) Compulsive behavior: Code(s): R46.89 - Other symptoms and signs involving appearance and behavior Category: Medical Plan: As above Orders: Referrals Psychiatry Referral F33.9 - Major depressive disorder, recurrent, unspecified, F41.1 - Generalized anxiety disorder, R46.89 - Other symptoms and signs involving appearance and behavior Behavioral Health Referral F33.9 - Major depressive disorder, recurrent, unspecified, F41.1 - Generalized anxiety disorder
--- OUTSIDE RECORDS SUMMARY | 2024-11-21 12:54 | XMS_ITS | Clinical Summary ---
Author Organization [facility] Address [address] [place] [phone] Phone Care Team Providers Care Podiatric Foot And Ankle Specialist Name Role Phone Unavailable Primary Care Provider [...] IVIG, due to f/u with Cardiology at [facility] Assessment & Plan (07/02/2019 11:07 AM EDT): [...] safe sex if SA. To f/u with Account Resolution Expert as needed. She has not discussed this with parents, encouraged her to do so if able. Assessment & Plan (11/17/2018 3:18 PM EDT): Gave rx for OCP, did not add to med record by request Refused influenza vaccine 06/08/2018 Assessment & Plan (07/02/2019 10:44 AM EDT): Recommended flu shot which was declined. Seasonal allergies 06/08/2018 Overview (06/08/2018): Spring and cetitizine and sees compensation intern with animal and dust allergies as well. [...] age: 48 diagnosed with Hypercholesteremia Maternal Grandfather [place] trip le bypass, brain aneurysm diagnosed with [...] Health Maintenance Due Date Last Done Comments DTaP,Tdap,and Td Vaccines (7 - Td or [...] Hepatitis A Vaccines Completed 07/02/2019, 06/20/19 19 Men B Vaccine Aged Out No longer elig ible based on patient's age to complete this topic Procedures * Due to [place] state law, this organization might not be sharing sensitive test results. Procedure Name Priority Date/Time Associated Diagnosis Comments CHLAMYDIA AND GONORRHEA, AMPLIFIED Routine 07/02/2019 10:27 AM EDT Encounter for well adult exam with abnormal findings from Last 3 Months or Most Recently Relevant to Health Maintenance Results * Due to [place] state law, this organization might not be sharing sensitive test results. * Chlamydia and Gonorrhoea, Amplified (07/02/2019 10:27 AM EDT) Chlamydia Trachomatis, DNA Probe NEGATIVE (NEG) [facility] Comment: No Chlamydia Trachomatis RNA detected in this patient's sample (REFERENCE RANGE/NORMAL VALUE: NOT DETECTED) Note: This test uses corner former- mediated amplification method to detect rRNA from C. Trachomatis URINE GC AMP PROBE NEGATIVE (NEG) [facility] Comment: No Neisseria Gonorrhoeae RNA detected in this patient's sample (REFERENCE RANGE/NORMAL VALUE: NOT DETECTED) NOTE: This test uses corner former-mediated amplification method to detect rRNA from N.Gonorrhoeae. [...] without risk of sexual abuse. Consult the [facility] if needed. Contact phone number . Therapeutic failure or success cannot be determined with the Aptima Combo2 assay since nucleic acid may persist following appropriate antimicrobial therapy. The Centers for Disease Control and Prevention (CDC) recommends confirmatory retesting using culture or a different nucleic acid amplification test when positive results occur, if indicated. Testing performed or reported by [facility], a Service of [facility], [facility] [address], [place] [address] Valentín Carter MD, Radio Personality Urine 07/02/2019 10:2 7 AM EDT 07/02/2019 3:42 PM EDT Marlyn Drake MD LAB MICROBIOLOGY - GENERAL OR DERABLES Final Result [facility] from Last 3 Months or Most Recently Relevant to Health [place] [address] [facility] [place] [address] [facility]CIAL
== END 2024-11-21 14:33 | disposition home or self-care (01) ==
LOC: HO.HMCFM 12:14
PROVIDERS: PCP Physician Assistant; Visit Provider Physician Assistant
DX: F41.1 Generalized anxiety disorder (principal); F33.9 Major depressive disorder, recurrent, unspecified; R46.89 Other symptoms and signs involving appearance and behavior

== ENCOUNTER → 2024-11-21 12:14 | Outpatient (BNVA) | payer OTHER, SELFPAY | PROVIDERS: PCP Physician Assistant; Visit Provider Physician Assistant | DX: F41.1 Generalized anxiety disorder (principal); F33.9 Major depressive disorder, recurrent, unspecified; Z79.899 Other long term (current) drug therapy | CPT/HCPCS: 96127 ==